=== PATIENT | female | born 1970 | race Caucasian/White ===

== ENCOUNTER → 2016-10-09 | Outpatient (CLI) | payer OTHER ==
[~2016-10-09] MED LIST: AMLO5CAP2 PO; ASCO250T4 PO; ASPEC81 PO; CYAN10005 PO; FERR1TAB13 PO; FLUT0.15 NAE; HYDR-3983 PO; HYDR-5688 PO; HYG25 PO; LABE100T23 PO; ROPI2TAB6 PO
[2016-10-09 14:09] LABS: BLOOD UREA NITROGEN 12 mg/dl (7-18); BUN/CREATININE RATIO 18.1 (10-20); CARBON DIOXIDE 27 mmol/L (21-32); CHLORIDE 105 mmol/L (98-107); CREATININE 0.68 mg/dl (0.60-1.20); GLUCOSE 99 mg/dl (70-99); PHOSPHORUS 2.5 mg/dl (2.5-4.9); POTASSIUM 4.3 mmol/L (3.5-5.1); SODIUM 140 mmol/L (136-145)
== END | disposition home or self-care (01) ==
LOC: C.LABMFLN 09:26
PROVIDERS: ATTEND Internal Medicine Nephrology
DX: I10 Essential (primary) hypertension (principal)

== ENCOUNTER → 2016-11-13 | Outpatient (CLI) | payer OTHER ==
[2016-11-13 13:05] LABS: BASO % 0.4 %; BASO ABS # 0.05 K/uL (0-0.2); COMPLETE YES; EOS % 2.5 %; HEMATOCRIT 36.2 % (37-47); IG% 0.2 %; LYMPH % 20.9 %; LYMPH ABS # 2.37 K/uL (1.2-3.4); MEAN CELL VOLUME 80.4 fL (80-100); MEAN CORPUSCULAR HEMOGLOBIN 24.2 pg (25-34); MEAN CORPUSCULAR HGB CONC 30.1 g/dl (32-36); MEAN PLATELET VOLUME 11.9 fL (7.4-10.4); MONO % 6.4 %; NEUT % 69.6 %; PLATELET COUNT 266 K/uL (130-400); WHITE BLOOD COUNT 11.34 K/uL (4.8-10.8)
[2016-11-13 15:30] LABS: BLOOD UREA NITROGEN 20 mg/dl (7-18); BUN/CREATININE RATIO 19.8 (10-20); CALCIUM 9.5 mg/dl (8.5-10.1); CARBON DIOXIDE 31 mmol/L (21-32); CHLORIDE 102 mmol/L (98-107); GLUCOSE 99 mg/dl (70-99); SODIUM 139 mmol/L (136-145)
[2016-11-13 15:35] LABS: FERRITIN 17.2 ng/ml (8.0-388.0)
== END | disposition home or self-care (01) ==
LOC: C.LABMFLN 09:34
PROVIDERS: ATTEND Family Medicine
DX: N92.0 Excessive and frequent menstruation with regular cycle (principal)

== ENCOUNTER 2017-01-27 06:29 | Day surgery (SDC) | payer OTHER ==
[2017-01-15 09:44] VITALS: BMI 45.0
--- NOTE | 2017-01-15 10:32 | PAT Medication Instructions ---
Service Date Jan 15, 2017. Current Home Medication List Amlodipine/Benazepril (Lotrel 5MG/20MG), 1 CAP PO BID Ascorbic Acid (Vitamin C), 1 TAB PO QAM Chlorthalidone (Chlorthalidone), 1 TAB PO QAM Cyanocobalamin (Vitamin B-12), 1,000 MCG PO QAM Ferrous Sulfate (Kp Ferrous Sulfate), 1 TAB PO QAM Fluticasone Propionate (Nasal) (Flonase Allergy Relief), 1 SPRAY MARILIA DAILY PRN for allergies Hydrocodone/Acetaminophen 7.5MG/325MG ([place] 7.5MG/325MG), 1 TAB PO DAILY PRN for Pain Labetalol Hcl (Labetalol Hcl), 1 TAB PO BID Ropinirole (Requip), 2 MG PO HS Medication Instructions For Your Scheduled Surgery - Hold the following medications the morning of surgery: Amlodipine/Benazepril (Lotrel 5MG/20MG), 1 CAP PO BID Ascorbic Acid (Vitamin C), 1 TAB PO QAM Chlorthalidone (Chlorthalidone), 1 TAB PO QAM Cyanocobalamin (Vitamin B-12), 1,000 MCG PO QAM Ferrous Sulfate (Kp Ferrous Sulfate), 1 TAB PO QAM - Take the following medications the morning of surgery with a sip of water: Labetalol Hcl (Labetalol Hcl), 1 TAB PO BID Fluticasone Propionate (Nasal) (Flonase Allergy Relief), 1 SPRAY MARILIA DAILY PRN for allergies (if needed) Hydrocodone/Acetaminophen 7.5MG/325MG ([place] 7.5MG/325MG), 1 TAB PO DAILY PRN for Pain. (okay to take up to 4 hours prior to surgery if needed) - Hold the following medications as scheduled the night before surgery: Amlodipine/Benazepril (Lotrel 5MG/20MG), 1 CAP PO BID Ropinirole (Requip), 2 MG PO HS - Take the following medications as scheduled the night before surgery: Labetalol Hcl (Labetalol Hcl), 1 TAB PO BID Fluticasone Propionate (Nasal) (Flonase Allergy Relief), 1 SPRAY MARILIA DAILY PRN for allergies (if needed) Hydrocodone/Acetaminophen 7.5MG/325MG ([place] 7.5MG/325MG), 1 TAB PO DAILY PRN for Pain (if needed) If you have any questions please call us at [phone] or [phone] or [phone]
[2017-01-15 10:56] LABS: BASO % 0.2 %; BASO ABS # 0.02 K/uL (0-0.2); COMPLETE YES; EOS % 1.9 %; HEMATOCRIT 35.4 % (37-47); IG% 0.1 %; LYMPH % 22.5 %; LYMPH ABS # 2.02 K/uL (1.2-3.4); MEAN CELL VOLUME 81.9 fL (80-100); MEAN CORPUSCULAR HEMOGLOBIN 26.4 pg (25-34); MEAN CORPUSCULAR HGB CONC 32.2 g/dl (32-36); MEAN PLATELET VOLUME 11.1 fL (7.4-10.4); NEUT % 68.3 %; PLATELET COUNT 227 K/uL (130-400); RED BLOOD COUNT 4.32 M/uL (4.2-5.4); WHITE BLOOD COUNT 8.99 K/uL (4.8-10.8)
[2017-01-15 11:08] LABS: PROTHROMBIN TIME (PATIENT) 10.6 SECONDS (9.0-12.0)
--- NOTE | 2017-01-15 11:11 | DIAGNOSTIC IMAGING REPORT ---
CHEST PREADMISSION(PA/LAT) CLINICAL HISTORY: Preoperative chest COMPARISON STUDY: No previous studies for comparison. FINDINGS: The cardiac and mediastinal contours are normal. There is no evidence of focal pulmonary consolidation. There is no evidence of failure. No pleural effusions are visualized.[ Slight interstitial prominence, likely relates to technical factors given the patient's body habitus. IMPRESSION: No active disease in the chest. Electronically signed by: Wicho Zhong M.D. 01/15/2017 11:10 AM Dictated Date/Time: 01/15/2017 11:10 AM
[2017-01-15 11:44] LABS: URINE APPEARANCE CLEAR (CLEAR); URINE BILIRUBIN NEG (NEG); URINE COLOR YELLOW; URINE NITRITE POS (NEG); URINE SPECIFIC GRAVITY 1.018 (1.000-1.030); UROBILINOGEN NEG (NEG); ZZUR CULT IF INDIC CLEAN CATCH YES
[2017-01-15 11:46] LABS: MANUAL MICROSCOPIC REQUIRED? NO; REVIEW REQ? NO
--- NOTE | 2017-01-26 17:35 | HISTORY & PHYSICAL EXAMINATION ---
DATE OF ADMISSION: 01/27/2017 CHIEF COMPLAINT: Chronic left knee pain. HISTORY OF PRESENT ILLNESS: This is a 46-year-old female patient of Dr. Kate'neftali complaining of chronic left knee pain for approximately 1 year. She denies any trauma. She has anterior and medial pain. She feels a pop and clicking with range of motion, and she has occasional instability. MRI has confirmed a medial meniscus tear with plica. The patient wishes to proceed with a left knee arthroscopic partial medial meniscectomy and excision of plica. PAST MEDICAL HISTORY: Hypertension, sleep apnea with the use of CPAP and obesity. SOCIAL HISTORY: Nonsmoker, nondrinker. PAST SURGICAL HISTORY: She had a D&C with ablation. ALLERGIES: INCLUDE microbid, KEFLEX AND GABAPENTIN. REVIEW OF SYSTEMS: The patient complains of chronic left knee pain, otherwise denies any shortness of breath, chest pain, nausea, vomiting or any other joint complaints. FAMILY HISTORY: Noncontributory. MEDICATIONS: Include: 1. Amlodipine 5 mg/benazepril 20 mg b.i.d. 2. Fluticasone 50 mg nasal spray daily in each nostril. 3. Hydrocodone 7.5 mg daily. 4. Metoprolol 100 mg 1 tablet daily and 1/2 tablet at bedtime. 5. Ropinirole 2 mg daily. PHYSICAL EXAMINATION: GENERAL: Well-developed, well-nourished 46-year-old female in no acute distress. She is alert and oriented x3 and pleasant. HEENT: Normocephalic, atraumatic. Extraocular motions are intact. Pupils are equal and reactive to light. HEART: Regular rate and rhythm, no murmurs appreciated. LUNGS: Clear. ABDOMEN: Soft, nontender, bowel sounds present. EXTREMITIES: Left knee reveals medial joint line tenderness. Positive Evans's. She has a limited range of motion of 0-115 degrees. Ligaments are stable. NEUROLOGIC: Neurovascularly, she is intact in her left lower extremity. DIAGNOSES: Left knee medial meniscus tear, plica that and arthritis. She also has a history of hypertension, sleep apnea with the use of CPAP, anemia, and obesity. PLAN: The patient was advised of her diagnosis. Indications, risks, benefits, and postop course have all been reviewed. The patient wishes to proceed with a left knee arthroscopic partial medial meniscectomy, excision of plica and chondroplasty as needed. Necessary consent forms, preoperative testing and clearances will be obtained. [facility]
[~2017-01-27] VITALS: Ht 160 cm; Wt 115.4 kg
[~2017-01-27 06:29] MED LIST changes: -ASPEC81 PO; +CLINDAMYCIN 600 MG/54 ML D5W IV SCH; -HYDR-5688 PO; +LACTATED RINGER'S 1000ML 1,000 ML IV SCH; +LACTATED RINGER'S 1000ML 500 ML IV ONE
[2017-01-27 06:54] VITALS: BP 114/81; PULSE 67; TEMP 36.6; O2SAT 96; Ht 160 cm; Wt 115.4 kg
--- NOTE | 2017-01-27 07:07 | History & Physical Bridge Note ---
H&P Re-Evaluation Bridge Note: I have examined the patient, reviewed the History & Physical and in the interval since the performance of the History & Physical I have noted the following changes of clinical significance: No changes noted
[2017-01-27] MEDS ORDERED: PROPOFOL IV EMULSION 10 MG/ML 20 ML VIAL IV ONE (07:34)
[2017-01-27] MEDS ORDERED: LIDOCAINE HCL 2% 2 ML VIAL (20MG/ML) ONE (07:34)
[2017-01-27] MEDS ORDERED: DEXAMETHASONE SOD INJ 4 MG/ML VIAL ONE (07:34)
[2017-01-27] MEDS ORDERED: ONDANSETRON INJ 2 MG/ML 2 ML VIAL ONE (07:34)
[2017-01-27] MEDS ORDERED: FENTANYL CITRATE INJ 50 MCG/1 ML 2 ML VIAL ONE ×2 (07:35→08:55)
[2017-01-27] MEDS ORDERED: MIDAZOLAM HCL 1 MG/ML 2ML VIAL ONE (07:35)
[2017-01-27] MEDS ORDERED: BUPIVACAINE/EPINEPHRINE 0.5% MPF 1:200,000 10 ML VIAL ONE (07:47)
[2017-01-27] MEDS ORDERED: HYDROmorphone INJ 1 MG/ML SYR IV PRN (08:00)
[2017-01-27] MEDS ORDERED: ATROPINE SULFATE 0.1 MG/ML 5ML SYR IV PRN (08:00)
[2017-01-27] MEDS ORDERED: EpHEDrine SULFATE INJ 50 MG/ML AMP IV PRN (08:00)
[2017-01-27] MEDS ORDERED: ONDANSETRON INJ 2 MG/ML 2 ML VIAL IV PRN (08:00)
[2017-01-27] MEDS ORDERED: EpHEDrine SULFATE 50MG/5ML SYR ONE (08:41)
[2017-01-27] MEDS ORDERED: KETOROLAC TROMETHAMINE 30 MG/ML VIAL ONE (09:21)
[2017-01-27] MEDS ORDERED: SODIUM CHLORIDE 0.9% 1000ML 1,000 ML IV SCH (09:23)
[2017-01-27] MEDS ORDERED: ASPEC81 PO (09:27)
[2017-01-27] MEDS ORDERED: HYDR-5688 PO (09:27)
[2017-01-27] MEDS ORDERED: HYDROCODONE/ACETAMOPHEN 5/325MG TAB PO PRN ×2 (09:30)
--- NOTE | 2017-01-27 09:31 | Discharge Instructions ---
Discharge Instructions Date of Service Jan 27, 2017. Admission Reason for Admission: Left Knee Medial Meniscus Tear, Plica Syndrome Discharge Discharge Diagnosis / Problem: Right knee scope, PMM, chondoplasty, excision plica, debrid ACL Discharge Goals Goal(s): Improve function Activity Recommendations Activity Limitations: as noted below . Instructions / Follow-Up Instructions / Follow-Up Weight bear as tolerated, crutches if needed. Keep incisions clean, dry and in tact. Change dressings post op day #2. May shower briefly post op day #2, do not submerge incisions underwater. Begin PT 2-3 days post op. Take aspirin as directed to prevent blood clots if able to use aspirin. Ice/ elevate as needed. Current Hospital Diet Patient's current hospital diet: Discharge Diet Recommended Diet: Regular Diet Procedures Procedures Performed: Left Knee Arthroscopy with Partial Medial Menisectomy, Chondroplasty, Medial Compartment and Lateral Tibial Plateau, Excision Medial Plica and Debridment of Partial ACL Tear Pending Studies Studies pending at discharge: no Medical Emergencies . Who to Call and When: Medical Emergencies: If at any time you feel your situation is an emergency, please call 911 immediately. . Non-Emergent Contact Non-Emergency issues call your: Primary Care Provider . "Provider Documentation" section prepared by Oliver Rivera. . VTE Core Measure Inpt VTE Proph given/why not?: Other Anticoagulation (asa), Jose Barry, SCD's [place] Drug Monitoring Program Search Results: patient reviewed within database, no issues identified
[2017-01-27] MEDS ORDERED: HYDR-3983 PO (09:36)
[2017-01-27] MEDS: FENTANYL CITRATE INJ 50 MCG/1 ML 2 ML VIAL IV PRN ×2 (09:44→09:50)
--- NOTE | 2017-01-27 09:44 | [facility] Post Operative Brief Note ---
Immediate Operative Summary Operative Date Jan 27, 2017. Pre-Operative Diagnosis Left knee medial meniscus tear, medial plica with osteoarthritis arthritis Post-Operative Diagnosis Left knee medial meniscus tear, medial plica with osteoarthritis, partial degenerative ACL tear Procedure(s) Performed Left Knee Arthroscopy with Partial Medial Menisectomy, Chondroplasty, Medial Compartment and Lateral Tibial Plateau, Excision Medial Plica and Debridment of Partial ACL Tear Surgeon Dr Kate [employer] Photographer Surgeon(s) None Estimated Blood Loss 2cc Findings as above Specimens none as per surgeon Anesthesia general, local Complication(s) None Disposition Recovery Room / PACU
--- NOTE | 2017-01-27 10:14 | Anesthesiology Progress Note ---
Anesthesia Post Op Note Date & Time Jan 27, 2017 at 10:14 Vital Signs Pain Intensity: 2 Vital Signs Past 12 Hours Date Time Temp Pulse Resp B/P (MAP) Pulse Ox O2 Delivery O2 Flow Rate FiO2 01/27/17 10:09 36.4 01/27/17 10:07 66 16 01/27/17 10:07 66 16 95 01/27/17 10:06 120/71 01/27/17 10:02 66 12 100 01/27/17 10:02 65 12 01/27/17 10:01 116/73 01/27/17 09:57 62 12 01/27/17 09:57 60 12 97 01/27/17 09:56 111/75 01/27/17 09:52 66 15 01/27/17 09:52 65 15 99 01/27/17 09:51 112/60 01/27/17 09:47 69 12 100 01/27/17 09:47 69 12 01/27/17 09:46 108/63 01/27/17 09:42 73 13 98 01/27/17 09:42 74 13 01/27/17 09:41 108/64 01/27/17 09:38 101/61 01/27/17 09:37 75 17 01/27/17 09:37 76 17 98 01/27/17 09:32 37 74 14 110/57 98 Mask 01/27/17 06:54 36.6 67 20 114/81 (92) 96 Room Air Notes Mental Status: alert / awake / arousable, participated in evaluation Pt Amnestic to Procedure: Yes Nausea / Vomiting: adequately controlled Pain: adequately controlled Airway Patency, RR, SpO2: stable & adequate BP & HR: stable & adequate Hydration State: stable & adequate Anesthetic Complications: no major complications apparent
[2017-01-27 10:20] VITALS: BP 108/76; PULSE 67; TEMP 36.2; O2SAT 93
[2017-01-27 10:50] VITALS: BP 124/64; PULSE 59; O2SAT 96
[2017-01-27 11:20] VITALS: BP 124/64; PULSE 72; TEMP 36.3; O2SAT 95
--- NOTE | 2017-01-28 03:53 | OPERATIVE REPORT ---
DATE OF OPERATION: 01/27/2017 INDICATION FOR PROCEDURE: A 46-year-old female with left knee pain and disability, failed conservative management. Eventual MRI demonstrated she has a complex posterior horn medial meniscus tear, joint effusion, some degenerative arthritis in her knee and a medial plica. PREOPERATIVE DIAGNOSES: Left knee posterior horn medial meniscus tear, osteoarthritis and a medial plica. POSTOPERATIVE DIAGNOSES: Left knee osteoarthritis, posterior horn medial meniscus tear, medial plica, degenerative partial anterior cruciate ligament tear. PROCEDURE: Left knee arthroscopy, partial medial meniscectomy, chondroplasty medial compartment and lateral tibial plateau with debridement, partial ACL tear and excision of a medial synovial plica. SURGEON: Simón Kate MD HEALTH CARE LIAISON: None. ANESTHESIA: General. OPERATIVE PROCEDURE: The patient was taken to the operating room and anesthetized with general anesthetic. physical exam demonstrated she had obese leg and mild effusion. Pneumatic tourniquet was placed on the left upper thigh. The left lower extremity was prepped and draped in sterile fashion. Leg was elevated, exsanguinated with Esmarch bandage. Pneumatic tourniquet was raised to 350 mmHg. Arthroscopy was then performed via inferomedial and inferolateral arthroscopy portals. The following findings were noted. In the patellofemoral joint, patient had some grade 2 minor fraying of the patella and 1 tiny tuft of grade 3 wear in medial facet that was a very small area. The patient had a thickened medial synovial plica. In the medial compartment, patient had grade 3 chondromalacia of the medial femoral condyle extending from extension to the flexion surfaces. Grade 2 wear on the tibial plateau, more toward the medial side. The anterior and medial meniscus was normal. The posterior horn had a radial tear extending toward the periphery, but more toward the undersurface of the meniscus with undersurface horizontal cleavage tear and the root attachment was still intact with some partial detachment of the anterior aspect of the root attachment, but the remainder of the posterior horn was stable. Some the upper flap of the posterior horn was able to be preserved. The ACL had significant degenerative changes, partial tearing with some loose fibers that were from the main ligament with anterior drawer. There was some increased anterior translation but some endpoint with the tissue giving some support but not normal. There was some degeneration of the anterior horn of lateral meniscus at the attachment to the ACL area, but no lateral meniscus tear identified. There was some significant chondromalacia of the medial tibial spine with grade 3 wear of the lateral tibial plateau and far medial side of that was grade 4 exposed bone, possibly from subluxation. A partial medial meniscectomy was performed using a combination of 3.5 curved incisor blade and a 4.5 resector blade and basket punches to remove the unstable flaps debriding the meniscus back to a stable edge and remainder of it was probed and noted to be stable. Chondroplasty was performed to the grade 3 areas of the medial compartment and the lateral tibial plateau. I did a minor debridement of the patella and then resected the medial synovial plica. The frayed fibers of the ACL were debrided back to intact fibers. The knee was copiously irrigated and free of all debris. The knee was injected with 30 mL of Marcaine with epinephrine and then the portal sites were closed with nylon sutures. Sterile dressings were applied. Tourniquet was let down. The patient tolerated the procedure well. I attest to the content of the Intraoperative Record and any orders documented therein. Any exceptions are noted below. [place]
== END 2017-01-27 11:20 | disposition home or self-care (01) ==
LOC: C.ACU 06:29
PROVIDERS: ATTEND Orthopaedic Surgery Sports Medicine
DX: M23.222 Derangement of posterior horn of medial meniscus due to old tear or injury, left knee (principal); M23.8X2 Other internal derangements of left knee; M17.12 Unilateral primary osteoarthritis, left knee; I10 Essential (primary) hypertension; G47.30 Sleep apnea, unspecified; E66.9 Obesity, unspecified